=== PATIENT | female | born 1990 | race African-American/Black ===

== ENCOUNTER 2023-04-04 14:25 | Inpatient (IN) ==
--- NOTE | 2023-04-04 14:52 | DR.SOBA ---
HPI Time Seen Time Seen by Provider: 04/04/23 14:51 Primary Care Physician Primary Care Physician: Cash Mchugh (CATEGORY PLANNER) Complaints Chief Complaint Doctors Comments: 32-year-old female presents for evaluation. Has been having recurrent pulmonary issues of the past several weeks. Recently diagnosed with return of asthma. Finished steroids last week, is also on Singulair. Currently on cefdinir for sinus infection. Having worsening br eathing today, pulse ox in the low 90s at triage, is running a fever. Patient reportedly with recurrent pneumonias in the recent past as well. Having persistent cough, trouble sleeping at night. Cough not very productive. With some sinus congestion. No bowel or bladder issues. Chief Complaint:: Pt having "pulmonary problems", taking steroids currently, having sinus congestion, coughing "all night long", dizziness from coughing, short of breath, chest hurting from coughing so much, headache. Pt also c/o back hurting Self Treatment fo Chief Complaint: prednisone, sinus inf treated with cefdinir, inhalers, dimatapp at home recently completed singulair COVID-19 Coronavirus risk:travel/contact w/high risk person: Yes Has patient experienced Coronavirus symptoms: Yes Coronavirus symptoms experienced: Fever, Coughing and Shortness of Breath Reviewed Nurses Notes Reviewed: Yes Source History Provided: Patient Mode of Arrival Mode of Arrival: Wheelchair Timing Onset of Chief Complaint: 04/04/23 PMH PMH Past Medical History: Yes Past Medical History: Asthma and GERD Past Surgical History: Yes Surgical History: SNAG GRINDER Surgery Family History History of Family Medical Conditions: Yes Family Medical History: Cancer and Hypertension Social History Does patient currently use any type of tobacco product: No Have you used tobacco products in the last 12 months: No Type of Tobacco Use: None Does any household member use tobacco: No Alcohol Use: Rarely Do you use any recreational Drugs:: No Lives With: Spouse and Family Lives Where: Home Travel Risk Coronavirus risk:travel/contact w/high risk person: Yes Has patient experienced Coronavirus symptoms: Yes Coronavirus symptoms experienced: Fever, Coughing and Shortness of Breath Infectious screening In the last 2 months have you had wt loss of >10#?: NO Have you had fever, night sweats or hemotysis?: Yes Have you traveled outside the country in the last 6 months?: No Isolation: Droplet ROS Review of Systems Constitutional: Chills and Weakness Eyes: No Symptoms Reported ENTM: Nose Congestion Respiratoy: Moist Cough, Short of Breath and Wheezing Cardiovascular: No Symptoms Reported Gastrointestinal/Abdominal: No Symptoms Reported Genitourinary: No Symptoms Reported Neurological: Weakness Musculoskeletal: Back Pain Integumentary: No Symptoms Reported All Other Systems: Reviewed and Negative PE Vital Signs Vitals: Vital Signs Temperature 100.5 F Pulse Rate 121 Pulse Rate 128 Pulse Rate 127 Pulse Rate 108 Pulse Rate 109 Pulse Rate 109 Pulse Rate 113 Pulse Rate 116 Pulse Rate 113 Pulse Rate 109 Pulse Rate 109 Pulse Rate 114 Pulse Rate 98 Pulse Rate 106 Pulse Rate 115 Pulse Rate 116 Pulse Rate 123 Pulse Rate 124 Pulse Rate 128 Pulse Rate 134 Pulse Rate 132 Pulse Rate 144 Respiratory Rate 18 Respiratory Rate 28 Respiratory Rate 25 Respiratory Rate 24 Respiratory Rate 17 Respiratory Rate 28 Respiratory Rate 21 Respiratory Rate 26 Respiratory Rate 28 Respiratory Rate 25 Respiratory Rate 27 Respiratory Rate 25 Respiratory Rate 26 Respiratory Rate 28 Blood Pressure 115/66 Blood Pressure 132/68 Blood Pressure 123/67 Blood Pressure 130/79 Blood Pressure 135/72 Blood Pressure 134/72 Blood Pressure 132/76 Blood Pressure 125/77 Blood Pressure 132/87 O2 Sat by Pulse Oximetry 94 O2 Sat by Pulse Oximetry 92 O2 Sat by Pulse Oximetry 91 O2 Sat by Pulse Oximetry 97 O2 Sat by Pulse Oximetry 92 O2 Sat by Pulse Oximetry 92 O2 Sat by Pulse Oximetry 92 O2 Sat by Pulse Oximetry 92 O2 Sat by Pulse Oximetry 92 O2 Sat by Pulse Oximetry 96 O2 Sat by Pulse Oximetry 96 O2 Sat by Pulse Oximetry 97 O2 Sat by Pulse Oximetry 98 O2 Sat by Pulse Oximetry 97 O2 Sat by Pulse Oximetry 96 O2 Sat by Pulse Oximetry 98 O2 Sat by Pulse Oximetry 95 O2 Sat by Pulse Oximetry 95 O2 Sat by Pulse Oximetry 94 O2 Sat by Pulse Oximetry 92 O2 Sat by Pulse Oximetry 91 O2 Sat by Pulse Oximetry 92 General General Appearance: Alert and In Distress (At triage, low pulse ox. Doing better on O2) Eyes Eye exam: PERRL and EOMI ENT ENT Exam: Normal Oropharynx, Mucous Membranes Moist and TM's Normal Bilaterally Neck Neck Exam: Normal Inspection; negative Tenderness Respiratory Respiratory Exam: Other (Bilateral rhonchi, expiratory wheezing. Not in respiratory distress while on O2. ) Cardiovascular Cardiovascular Exam: Regular Rate, Normal Rhythm and Normal Heart Sounds Abdominal Exam Abdominal Exam: Soft; negative Tenderness Extremities Extremities Exam: Normal Inspection; negative Edema Back Back Exam: Normal Inspection Neurologic Neurological Exam: Alert, Oriented X3 and CN II-XII Intact; negative Motor Sensory Deficit Skin Skin Exam: Warm and Dry COURSE Treatment Treatment: 32-year-old female with several weeks of recurrent pneumonia and asthma exacerbations. Work-up initiated. Patient put on nasal cannula. Given IV fluids, IV Decadron, and a DuoNeb breathing treatment. CXR - unremarkable. 1823 -labs acceptable, COVID Chemult panel negative. Patient clinically with exacerbation of asthma. 1829 -patient feeling a bit better. Pulse ox at rest on room air 92-93 %. We will give an additional DuoNeb treatment now, will give oral hydrocodone for cough/pain. Patient may require overnight admission, f urther treatment. 0 - + still with expiratory wheezing after 2nd duoneb, pulse ox 93% on RA, will continue O2 and admit for observation. Pt interested in establishing with Dr Alexander, will admit to Dr Parnell (covering [facility]). ROR Labs Reviewed Laboratory Results Reviewed?: Yes 04/04/23 15:38 04/04/23 15:38 Laboratory: WBC 10.8 X10^3/uL (3.6-10.0) H 04/04/23 15:38 RBC 4.79 X10^6/uL (3.5-5.4) 04/04/23 15:38 Hgb 15.1 g/dL (12.0-16.0) 04/04/23 15:38 Hct 44.9 % (36.0-47.0) 04/04/23 15:38 MCV 93.9 fL (80.0-100.0) 04/04/23 15:38 MCH 31.5 pg (27.0-34.0) 04/04/23 15:38 MCHC 33.5 g/dL (33.0-35.0) 04/04/23 15:38 RDW 14.4 % (11.6-16.5) 04/04/23 15:38 Plt Count 409 X10^3/uL (150.0-450.0) 04/04/23 15:38 MPV 6.8 fL (7.4-11.0) L 04/04/23 15:38 Neut % (Auto) 80.9 % (42.0-75.0) H 04/04/23 15:38 Lymph % (Auto) 13.1 % (21.0-51.0) L 04/04/23 15:38 [place] % (Auto) 5.4 % (0.0-13.0) 04/04/23 15:38 Eos % (Auto) 0.2 % (0.9-2.9) L 04/04/23 15:38 Baso % (Auto) 0.4 % (0.2-1.0) 04/04/23 15:38 Neut # (Auto) 8.8 x10^3/uL (2.2-4.8) H 04/04/23 15:38 Lymph # (Auto) 1.4 X10^3/uL (1.3-2.9) 04/04/23 15:38 Hamb[place] # (Auto) 0.6 x10^3/uL (0.3-0.8) 04/04/23 15:38 Eos # (Auto) 0.0 x10^3/uL (0.0-0.2) 04/04/23 15:38 Baso # (Auto) 0.0 X10^3/uL (0.0-0.1) 04/04/23 15:38 Absolute Nucleated RBC 0.1 /100WBC 04/04/23 15:38 Sodium 136 mmol/L (136-145) 04/04/23 15:38 Corrected Sodium 137 mmol/L (136-145) 04/04/23 15:38 Potassium 4.3 mmol/L (3.5-5.1) 04/04/23 15:38 Chloride 103 mmol/L (98-107) 04/04/23 15:38 Carbon Dioxide 25.8 mmol/L (21-32) 04/04/23 15:38 BUN 11 mg/dL (7-18) 04/04/23 15:38 Creatinine 1.01 mg/dL (0.55-1.02) 04/04/23 15:38 Est GFR (MDRD) Af Amer > 60 (>60) 04/04/23 15:38 Est GFR (MDRD) Non-Af > 60 (>60) 04/04/23 15:38 Glucose 133 mg/dL (65-99) H 04/04/23 15:38 Calcium 8.7 mg/dL (8.5-10.1) 04/04/23 15:38 Corrected Calcium TNP 04/04/23 15:38 Total Bilirubin 0.40 mg/dL (0.2-1.0) 04/04/23 15:38 AST 37 Units/L (15-37) 04/04/23 15:38 ALT 41 Units/L (12-78) 04/04/23 15:38 Alkaline Phosphatase 118 Units/L (46-116) H 04/04/23 15:38 Total Protein 7.5 g/dL (6.4-8.2) 04/04/23 15:38 Albumin 3.5 g/dL (3.4-5.0) 04/04/23 15:38 Globulin 4.0 g/dL (2.5-4.5) 04/04/23 15:38 Albumin/Globulin Ratio 0.9 Ratio (1.1-2.1) L 04/04/23 15:38 TSH 3rd Generation 0.271 uIU/mL (0.358-3.74) L 04/04/23 15:38 SARS-CoV-2 (PCR) Negative (NEGATIVE) 04/04/23 14:55 Influenza Type A (PCR) Negative (NEGATIVE) 04/04/23 14:55 Influenza Type B (PCR) Negative (NEGATIVE) 04/04/23 14:55 RSV (PCR) Negative (NEGATIVE) 04/04/23 14:55 Labs acceptable. XRAY XRAY Interpreted by: Both X-ray Results: CXR -no acute abnormalities. Opioid Opioid Risk Tool Age (Paul box if 16-45): Yes History of Preadolescent Sexual Abuse: No Total: 1 Total Score Risk Category: Low Risk Copyright: Matos predicting aberrant behaviors Discharge Plan Diagnosis Discharge Problem: Exacerbation of asthma Discharge Plan Patient Disposition: 09 ADMITTED INPATIENT Condition: Stable Prescriptions: No Action nystatin 100,000 unit/mL suspension 5 ml PO TID PRN albuterol sulfate 90 mcg/actuation HFA aerosol inhaler 2 puff INHALATION Q4H PRN cefdinir 300 mg capsule 300 mg PO BID budesonide-formoterol 80-4.5 mcg/actuation HFA aerosol inhaler 2 puff INHALATION BID Health Concerns: Post Hospitalization: new medications and changes needed to prevent readmission or further decline. Pt educated and given instructions on all concerns. Plan of Treatment: Continue with present treatment and follow up plan. Pt is to keep follow up appointment as instructed and take medications as ordered. Orders to Discharge Patient Discharge Orders: Transfer (Routine); Ordered 04/04/23 Ordered By: Fredy Boone Follow ups/Referrals Follow ups/Referrals: Tarsha Lay [Primary Care Provider] - 3 days
--- NOTE | 2023-04-04 15:10 | RAD ---
EXAM:CHEST, 1 VIEWHISTORY:SOUGH, DYSPNEA;COMPARISON:No relevant prior studies were available at the time of interpretation.TECHNIQUE:CHEST, 1 VIEWFINDINGS:Lines and tubes: NoneMediastinum:The cardiomediastinal silhouette is within normal limits for size and contour.Pulmonary vasculature:No pulmonary vascular congestionLung sidhu: No suspicious airspace opacities.Pleura:No effusion or pneumothorax.Bones and soft tissues:No acute osseous or soft tissue abnormality.IMPRESSION:1. No acute cardiopulmonary abnormalityTHIS IS AN ELECTRONICALLY VERIFIED FINAL [id number]/04/2023 3:07 PM - Electronically signed by Lester Sorto MD
[2023-04-04] MEDS ORDERED: DUONEB 0.5 MG/3 MG (3 mL) NEB ONE ×3 (15:16→18:29)
[2023-04-04] MEDS ORDERED: NS 1,000 ML IV 1,000 ML IV ONE (15:16)
[2023-04-04] MEDS ORDERED: DECADRON INJ IVP ONE (15:16)
[2023-04-04] MEDS ORDERED: TORADOL 30 MG VIAL IVP ONE (15:17)
[2023-04-04] MEDS ORDERED: DECADRON INJ ONE (15:27)
[2023-04-04] MEDS ORDERED: TORADOL 30 MG VIAL ONE (15:27)
[2023-04-04] MEDS ORDERED: NS 1,000 ML IV 1,000 ML ONE (15:28)
[2023-04-04 15:57] LABS: BASOPHILS % (AUTO) 0.4 % (0.2-1.0); EOSINOPHILS % (AUTO) 0.2 % (0.9-2.9); HEMATOCRIT 44.9 % (36.0-47.0); HEMOGLOBIN 15.1 g/dL (12.0-16.0); LYMPHOCYTES # (AUTO) 1.4 X10^3/uL (1.3-2.9); LYMPHOCYTES % (AUTO) 13.1 % (21.0-51.0); MEAN CORPUSCULAR HEMOGLOBIN 31.5 pg (27.0-34.0); MEAN CORPUSCULAR HGB CONC 33.5 g/dL (33.0-35.0); MEAN CORPUSCULAR VOLUME 93.9 fL (80.0-100.0); MEAN PLATELET VOLUME 6.8 fL (7.4-11.0); MONOCYTES # (AUTO) 0.6 x10^3/uL (0.3-0.8); MONOCYTES % (AUTO) 5.4 % (0.0-13.0); NEUTROPHILS # (AUTO) 8.8 x10^3/uL (2.2-4.8); NEUTROPHILS % (AUTO) 80.9 % (42.0-75.0); PLATELET COUNT 409 X10^3/uL (150.0-450.0); RED BLOOD COUNT 4.79 X10^6/uL (3.5-5.4); RED CELL DISTRIBUTION WIDTH 14.4 % (11.6-16.5); WHITE BLOOD COUNT 10.8 X10^3/uL (3.6-10.0)
[2023-04-04 16:15] LABS: ALANINE AMINOTRANSFERASE 41 Units/L (12-78); ALBUMIN 3.5 g/dL (3.4-5.0); ALKALINE PHOSPHATASE 118 Units/L (46-116); ASPARTATE AMINO TRANSFERASE 37 Units/L (15-37); BLOOD UREA NITROGEN 11 mg/dL (7-18); CALCIUM 8.7 mg/dL (8.5-10.1); CARBON DIOXIDE 25.8 mmol/L (21-32); CREATININE 1.01 mg/dL (0.55-1.02); GLUCOSE 133 mg/dL (65-99); TOTAL PROTEIN 7.5 g/dL (6.4-8.2); TSH (3RD GENERATION) 0.271 uIU/mL (0.358-3.74); eGFR NON BLACK RACES > 60 (>60)
[2023-04-04 16:25] LABS: CHLORIDE 103 mmol/L (98-107); COR NA(FOR HYPERGLY) 137 mmol/L (136-145); POTASSIUM 4.3 mmol/L (3.5-5.1); SODIUM 136 mmol/L (136-145)
[2023-04-04] MEDS ORDERED: NORCO 7.5/325 MG TAB ONE (18:34)
[2023-04-04] MEDS: NORCO 7.5/325 MG TAB PO ONE (18:36)
[2023-04-04] MEDS ORDERED: CONSULT PHARMACY - POTASSIUM & MAGNESIUM XX SCH (20:53)
[2023-04-04 21:43] VITALS: BMI 39.8
[2023-04-04] MEDS ORDERED: DUONEB 0.5 MG/3 MG (3 mL) NEB SCH (22:00)
[2023-04-04] MEDS: SOLU-Medrol 40 MG VIAL IVP SCH (22:08)
[2023-04-04] MEDS ORDERED: PROVENTIL NEB TX 0.083% 2.5MG/ 3ML ONE (23:33)
[2023-04-05] MEDS: PROVENTIL NEB TX 0.083% 2.5MG/ 3ML NEB SCH ×6 (00:01→21:10)
[2023-04-05] MEDS: ROBITUSSIN DM PO PRN ×3 (02:43→21:15)
[2023-04-05] MEDS ORDERED: TYLENOL 325 MG TAB PO ONE (03:04)
[2023-04-05] MEDS: TYLENOL 325 MG TAB PO PRN ×3 (03:07→21:58)
[2023-04-05] MEDS: SOLU-Medrol 40 MG VIAL IVP SCH ×3 (05:21→21:16)
[2023-04-05] MEDS: TUSSIONEX PENNKINETIC SUSP PO PRN ×2 (05:21→21:57)
[2023-04-05 05:36] LABS: BASOPHILS % (AUTO) 0.2 % (0.2-1.0); HEMATOCRIT 41.6 % (36.0-47.0); HEMOGLOBIN 13.7 g/dL (12.0-16.0); LYMPHOCYTES # (AUTO) 1.6 X10^3/uL (1.3-2.9); LYMPHOCYTES % (AUTO) 9.7 % (21.0-51.0); MEAN CORPUSCULAR HEMOGLOBIN 31.2 pg (27.0-34.0); MEAN CORPUSCULAR VOLUME 94.5 fL (80.0-100.0); MEAN PLATELET VOLUME 7.1 fL (7.4-11.0); MONOCYTES % (AUTO) 6.3 % (0.0-13.0); NEUTROPHILS # (AUTO) 13.5 x10^3/uL (2.2-4.8); NEUTROPHILS % (AUTO) 83.8 % (42.0-75.0); PLATELET COUNT 370 X10^3/uL (150.0-450.0); RED CELL DISTRIBUTION WIDTH 14.3 % (11.6-16.5); WHITE BLOOD COUNT 16.1 X10^3/uL (3.6-10.0)
[2023-04-05 05:37] LABS: ALANINE AMINOTRANSFERASE 33 Units/L (12-78); ALKALINE PHOSPHATASE 138 Units/L (46-116); ASPARTATE AMINO TRANSFERASE 22 Units/L (15-37); BLOOD UREA NITROGEN 13 mg/dL (7-18); CALCIUM 8.1 mg/dL (8.5-10.1); CARBON DIOXIDE 24.2 mmol/L (21-32); CHLORIDE 105 mmol/L (98-107); COR CA(FOR HYPOALB) 8.9 mg/dL (8.5-10.1); COR NA(FOR HYPERGLY) 138 mmol/L (136-145); CREATININE 0.89 mg/dL (0.55-1.02); GLUCOSE 149 mg/dL (65-99); SODIUM 137 mmol/L (136-145); TOTAL PROTEIN 6.7 g/dL (6.4-8.2); eGFR NON BLACK RACES > 60 (>60)
[2023-04-05] MEDS: PULMICORT NEB TX 0.5 MG NEB SCH ×2 (09:06→21:10)
[2023-04-05] MEDS: NYSTATIN SUSP MT SCH ×4 (11:15→21:15)
--- NOTE | 2023-04-05 11:59 | DR.H&P ---
H&P - History & Physical for Day of: H&P Date: 04/04/23 - Chief Complaint Chief Complaint: COUGH, SOB - History of Present Illness History of Present Illness: IS A 32 YEAR OLD BLACK FEMALE. SHE IS A PATIENT OF [facility]. SHE HAS A PMH OF ASTHMA AND GERD. SHE PRESENTED TO THE ER WITH COMPLAINTS OF PERSISTENT COUGH, SHORTNESS OF BREATH, HEADACHE, AND CHEST DISCOMFORT. PATIENT REPORTS THAT SHE HAS HAD RECURRENT PULMONARY ISSUES FOR THE PAST SEVERAL WEEKS. SHE WAS RECENTLY DIAGNOSED WITH ASTHMA. SHE REPORTS THAT SHE WAS ALSO TOLD LAST WEEK THAT SHE HAD A SINUS INFECTION AND WAS PRESCRIBED CEFDINIR, WHICH SHE IS STILL TAKING. SHE REPORTS THAT SHORTNESS OF BREATH HAS WORSENED OVER THE PAST DAY OR TWO. SHE REPORTS THAT HER OXYGEN SATURATION AT HOME HAS DROPPED TO 90% AND THAT SHE HAS RAN A FEVER. SHE REPORTS THAT COUGH IS NOT PRODUCTIVE AND THAT SHE HAS HAD SOME SINUS CONGESTION. SHE DENIES BOWEL OR BLADDER ISSUES. IT APPEARS THAT PATIENT HAS TAKEN CEFDINIR 300MG BID, ALBUTEROL INHALER, BUDESONIDE INHALER, FLUCONAZOLE 100MG Q3DAYS, NYSTATIN SWISH AND SWALLOW SINCE 03/24/23. ON ARRIVAL TO THE HOSPTIAL, HER VITALS WERE: 100.5-144-28-92%ROOM AIR-132/87. LABS WERE OBTAINED. WBC 10.8, RBC 4.79, HGB 15.1, HCT 44.9, PLT COUNT 409, SODIUM 136, POTASSIUM 4.3, CHLORIDE 103, CARBON DIOXIDE 25.8, BUN 11, CREATININE 1.01, GLUCOSE 133, CALCIUM 8.7, TOTAL BILI 0.40, AST 37, ALT 41, ALK PHOS 118, TOTAL PROTEIN 7.5, ALBUMIN 3.5. COVID, INFLUENZA, AND RSV NEGATIVE. A CHEST XRAY WAS OBTAINED AND REVEALED: 1. No acute cardiopulmonary abnormality. IN THE ER, SHE WAS PLACED ON OXYGEN VIA NASAL CANNULA AT 2 LPM. SATURATIONS INCREASED TO THE UPPER 90s. IN THE ER, SHE WAS GIVEN DECADRON 8MG IV X 1, DUONEB X 2, NORMAL SALINE BOLUS, TORADOL 30MG IV X 1, NORCO 7.5/325MG X 1. SHE WAS ADMITTED TO THE HOSPITAL FOR FURTHER EVALUATION AND TREATMENT OF ASTHMA EXACERBATION, ACUTE BRONCHITIS. ON ADMISSION, SHE WAS STARTED ON ROCEPHIN 1G IV DAILY, SOLU-MEDROL 40MG IV Q8H, ALBUTEROL NEBS Q4H, PULMICORT NEBS BID, TUSSIONEX 5ML Q12H PRN, ROBITUSSIN DM 10ML Q4H PRN, NYSTATIN SUSP 5ML QID, AND FLUCONAZOLE 100MG DAILY. OTHERWISE, WE PLAN TO FOLLOW UP WITH AM LABS AND CHEST XRAY AND CONTINUE TO MONITOR. TIME SPENT ON CLINICAL ASSESSMENT, REVIEWING LABS AND IMAGING, DECISION MAKING, AND DOCUMENTATION GREATER THAN 75 MINUTES. 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 - Family History Family Medical History: Cancer, Hypertension - Social History Does patient currently use any type of tobacco product: No Have you used tobacco products in the last 12 months: No Type of Tobacco Use: None Does any household member use tobacco: No Alcohol Use: Rarely Drug Use: None - Review of Systems Constitutional: Fever Eyes: No Symptoms Reported ENT: No Symptoms Reported Respiratory: Cough, Shortness of Breath, Wheezing Cardiovascular: Chest Pain Gastrointestinal: No Symptoms Reported Genitourinary: No Symptoms Reported Musculoskeletal: No Symptoms Reported Skin: No Symptoms Reported Neurological: No Symptoms Reported - Physical Exam Vital Signs: Vital Signs Temperature 98.8 F Temperature 98.0 F Pulse Rate [Left] 95 Pulse Rate [Left] 109 Pulse Rate 111 Respiratory Rate 18 Respiratory Rate 19 Respiratory Rate 20 Blood Pressure [Left Arm] 115/62 Blood Pressure [Left Arm] 119/61 O2 Sat by Pulse Oximetry 96 O2 Sat by Pulse Oximetry 95 O2 Sat by Pulse Oximetry 95 Oriented: Normal Eyes: Normal Ear: Normal Nose: Normal Cardiovascular: Tachycardia : Normal Auscultation: Bowel Sounds: Normal Palpation: Normal Tenderness: Normal Skin: Normal Musculoskeletal: Normal Psychiatric: Normal Mood Description: Calm Affect: Normal Speech Pattern: Clear - Assessment/Plan (1) Exacerbation of asthma Qualifiers: Asthma severity: moderate Status: Acute Plan: ADMIT, SUPPLEMENTAL OXYGEN, ROCEPHIN 1G IV DAILY, SOLU-MEDROL 40MG IV Q8H, ALBUTEROL NEBS Q4H, PULMICORT NEBS BID, TUSSIONEX 5ML Q12H PRN, ROBITUSSIN DM 10ML Q4H PRN, NYSTATIN SUSP 5ML QID, AND FLUCONAZOLE 100MG DAILY. (2) Acute bronchitis Qualifiers: Bronchitis organism: unspecified organism Qualified Code(s): J20.9 - Acute bronchitis, unspecified Status: Acute (3) Fever Qualifiers: Fever type: unspecified Qualified Code(s): R50.9 - Fever, unspecified Status: Acute - Allergies Allergies/Adverse Reactions: Allergies Allergy/AdvReac Type Severity Reaction Status Date / Time corn AdvReac Mild Verified 04/04/23 14:28 shrimp AdvReac Mild Verified 04/04/23 14:28 tomato AdvReac Mild Verified 04/04/23 14:28 - Medications Home Medications: Home Medications Medication Instructions Recorded Confirmed albuterol sulfate 90 mcg/actuation 2 puff inhalation Q4H PRN 04/04/23 04/04/23 aerosol inhaler budesonide-formoterol HFA 80 2 puff inhalation BID 04/04/23 04/04/23 mcg-4.5 mcg/actuation aerosol inhaler cefdinir 300 mg capsule 300 mg PO BID 04/04/23 04/04/23 nystatin 100,000 unit/mL oral 5 ml PO TID PRN 04/04/23 04/04/23 suspension
[2023-04-05] MEDS ORDERED: NS 250 ML IV 250 ML IV ONE (13:10)
[2023-04-05] MEDS: DIFLUCAN PO SCH (13:26)
[2023-04-05] MEDS: ROCEPHIN VIAL 1 GRAM 1 G in NS 100 ML IV 100 ML IV SCH (13:27)
[2023-04-06] MEDS: PROVENTIL NEB TX 0.083% 2.5MG/ 3ML NEB SCH ×6 (05:10→20:50)
[2023-04-06 06:25] LABS: BASOPHILS # (AUTO) 0.1 X10^3/uL (0.0-0.1); BASOPHILS % (AUTO) 0.3 % (0.2-1.0); EOSINOPHILS # (AUTO) 0.1 x10^3/uL (0.0-0.2); EOSINOPHILS % (AUTO) 0.3 % (0.9-2.9); HEMATOCRIT 42.9 % (36.0-47.0); HEMOGLOBIN 14.2 g/dL (12.0-16.0); LYMPHOCYTES # (AUTO) 2.5 X10^3/uL (1.3-2.9); LYMPHOCYTES % (AUTO) 11.6 % (21.0-51.0); MEAN CORPUSCULAR HEMOGLOBIN 31.5 pg (27.0-34.0); MEAN CORPUSCULAR HGB CONC 33.1 g/dL (33.0-35.0); MEAN CORPUSCULAR VOLUME 94.9 fL (80.0-100.0); MEAN PLATELET VOLUME 7.5 fL (7.4-11.0); MONOCYTES # (AUTO) 1.9 x10^3/uL (0.3-0.8); MONOCYTES % (AUTO) 8.8 % (0.0-13.0); NEUTROPHILS # (AUTO) 16.8 x10^3/uL (2.2-4.8); PLATELET COUNT 363 X10^3/uL (150.0-450.0); RED BLOOD COUNT 4.52 X10^6/uL (3.5-5.4); RED CELL DISTRIBUTION WIDTH 14.5 % (11.6-16.5); WHITE BLOOD COUNT 21.2 X10^3/uL (3.6-10.0)
--- NOTE | 2023-04-06 06:25 | RAD ---
EXAM:CHEST, 1 VIEWHISTORY:EXACERBATION OF ASTHMA, SOB ;COMPARISON:04/04/2023.TECHNIQUE:AP view of the chestFINDINGS:The cardiac and mediastinal contours are normal in size. No consolidation or segmental lung collapse. Minor thickening of the right minor fissure. No pneumothorax. Soft tissue attenuation from the chest wall limits evaluation.IMPRESSION:Minor thickening of the right minor fissure can be seen with small right pleural effusion.THIS IS AN ELECTRONICALLY VERIFIED FINAL [id number]/06/2023 6:22 AM - Electronically signed by Kai Villa MD
[2023-04-06 06:41] LABS: ALANINE AMINOTRANSFERASE 31 Units/L (12-78); ALBUMIN 3.1 g/dL (3.4-5.0); ALKALINE PHOSPHATASE 130 Units/L (46-116); ASPARTATE AMINO TRANSFERASE 14 Units/L (15-37); BLOOD UREA NITROGEN 14 mg/dL (7-18); CALCIUM 8.1 mg/dL (8.5-10.1); CARBON DIOXIDE 27.3 mmol/L (21-32); CHLORIDE 104 mmol/L (98-107); COR CA(FOR HYPOALB) 8.8 mg/dL (8.5-10.1); COR NA(FOR HYPERGLY) 138 mmol/L (136-145); CREATININE 0.85 mg/dL (0.55-1.02); GLUCOSE 128 mg/dL (65-99); POTASSIUM 4.2 mmol/L (3.5-5.1); SODIUM 137 mmol/L (136-145); TOTAL PROTEIN 6.8 g/dL (6.4-8.2); eGFR NON BLACK RACES > 60 (>60)
[2023-04-06 06:54] LABS: PLATELET MORPHOLOGY COMMENT NORMAL (NORMAL)
[2023-04-06] MEDS: SOLU-Medrol 40 MG VIAL IVP SCH ×3 (06:59→21:39)
[2023-04-06] MEDS: PULMICORT NEB TX 0.5 MG NEB SCH ×2 (09:15→20:50)
[2023-04-06] MEDS: ROBITUSSIN DM PO PRN ×2 (10:30→19:58)
[2023-04-06 10:32] LABS: ABG ALLEN TEST POS; ABG BASE EXCESS 2.6 mmol/L (-2.0-2.0); ABG HCO3 26.2 mmol/L (22-26)
[2023-04-06] MEDS: DIFLUCAN PO SCH (11:41)
[2023-04-06] MEDS: NYSTATIN SUSP MT SCH ×4 (11:41→20:54)
[2023-04-06] MEDS: ROCEPHIN VIAL 1 GRAM 1 G in NS 100 ML IV 100 ML IV SCH (11:42)
[2023-04-06] MEDS ORDERED: OMNIPAQUE 350 mg/mL 100 mL BTL 100 ML ONE (15:51)
[2023-04-06] MEDS: TYLENOL 325 MG TAB PO PRN (19:58)
[2023-04-06] MEDS: SINGULAIR TAB 10 MG PO SCH (20:50)
[2023-04-06] MEDS: TUSSIONEX PENNKINETIC SUSP PO PRN (20:50)
[2023-04-06] MEDS: CLARITIN PO SCH (20:50)
[2023-04-06] MEDS: PROTONIX INJ 40 MG VIAL IVP SCH (20:58)
[2023-04-07] MEDS: PROVENTIL NEB TX 0.083% 2.5MG/ 3ML NEB SCH ×6 (00:42→20:33)
--- NOTE | 2023-04-07 01:00 | CT ---
EXAM:CHEST WITH CONTRASTHISTORY:ASTHMA, SOB;COMPARISON:Chest radiograph from April 06, 2023TECHNIQUE:Axial CT images of the chest were obtained after the administration of 75 mL Omnipaque 350 IV contrast. Images were reformatted into the coronal and sagittal planes for further evaluation.Radiation dose: 340.50 mGy-cm total DLPFINDINGS:No pericardial effusion.Aorta and pulmonary arteries are normal in caliber.No hilar or mediastinal adenopathy.Thyroid appears normal.Central airways are widely patent.Esophagus appears normal.Imaged portion of the upper abdomen is unremarkable.No effusion, focal consolidation or pneumothorax.No focal concerning lung parenchymal lesion identified.IMPRESSION:No acute intrathoracic abnormality.THIS IS AN ELECTRONICALLY VERIFIED FINAL [id number]/07/2023 12:57 AM - Electronically signed by James Akbar MD
[2023-04-07] MEDS: SOLU-Medrol 40 MG VIAL IVP SCH ×3 (05:06→21:08)
[2023-04-07 06:15] LABS: BASOPHILS # (AUTO) 0.1 X10^3/uL (0.0-0.1); BASOPHILS % (AUTO) 0.3 % (0.2-1.0); EOSINOPHILS % (AUTO) 0.1 % (0.9-2.9); HEMATOCRIT 42.5 % (36.0-47.0); HEMOGLOBIN 14.1 g/dL (12.0-16.0); LYMPHOCYTES # (AUTO) 1.8 X10^3/uL (1.3-2.9); MEAN CORPUSCULAR HEMOGLOBIN 31.7 pg (27.0-34.0); MEAN CORPUSCULAR HGB CONC 33.2 g/dL (33.0-35.0); MEAN CORPUSCULAR VOLUME 95.3 fL (80.0-100.0); MONOCYTES # (AUTO) 1.5 x10^3/uL (0.3-0.8); MONOCYTES % (AUTO) 8.3 % (0.0-13.0); NEUTROPHILS # (AUTO) 14.7 x10^3/uL (2.2-4.8); NEUTROPHILS % (AUTO) 81.3 % (42.0-75.0); PLATELET COUNT 337 X10^3/uL (150.0-450.0); RED BLOOD COUNT 4.46 X10^6/uL (3.5-5.4); RED CELL DISTRIBUTION WIDTH 14.3 % (11.6-16.5)
[2023-04-07 06:28] LABS: ALANINE AMINOTRANSFERASE 26 Units/L (12-78); ALKALINE PHOSPHATASE 115 Units/L (46-116); ASPARTATE AMINO TRANSFERASE 10 Units/L (15-37); BLOOD UREA NITROGEN 18 mg/dL (7-18); CALCIUM 7.9 mg/dL (8.5-10.1); CARBON DIOXIDE 27.1 mmol/L (21-32); CHLORIDE 105 mmol/L (98-107); COR CA(FOR HYPOALB) 8.7 mg/dL (8.5-10.1); COR NA(FOR HYPERGLY) 141 mmol/L (136-145); CREATININE 0.88 mg/dL (0.55-1.02); GLUCOSE 132 mg/dL (65-99); POTASSIUM 4.2 mmol/L (3.5-5.1); SODIUM 140 mmol/L (136-145); TOTAL PROTEIN 6.7 g/dL (6.4-8.2); eGFR NON BLACK RACES > 60 (>60)
--- NOTE | 2023-04-07 06:30 | RAD ---
EXAM:CHEST, 1 VIEWHISTORY:SOB ;COMPARISON:04/06/2023.TECHNIQUE:AP view of the chestFINDINGS:The cardiac and mediastinal contours are within normal limits. The lungs are clear without focal consolidation or segmental collapse. There is minor thickening of the right minor fissure. No pneumothorax. Soft tissue attenuation from the chest wall limits evaluation.IMPRESSION:No significant change compared to prior radiograph.THIS IS AN ELECTRONICALLY VERIFIED FINAL [id number]/07/2023 6:26 AM - Electronically signed by Kai Villa MD
[2023-04-07] MEDS: PULMICORT NEB TX 0.5 MG NEB SCH ×2 (09:04→20:33)
[2023-04-07] MEDS: CLARITIN PO SCH (10:03)
[2023-04-07] MEDS: NYSTATIN SUSP MT SCH ×4 (10:04→20:29)
[2023-04-07] MEDS: ROCEPHIN VIAL 1 GRAM 1 G in NS 100 ML IV 100 ML IV SCH (10:04)
[2023-04-07] MEDS: FLONASE NASAL SPRAY ENOSTRIL SCH (10:04)
[2023-04-07] MEDS: PROTONIX INJ 40 MG VIAL IVP SCH ×2 (10:04→20:29)
[2023-04-07] MEDS: DIFLUCAN PO SCH (10:04)
[2023-04-07] MEDS: ROBITUSSIN DM PO PRN ×2 (10:05→18:00)
--- NOTE | 2023-04-07 13:56 | EKG ---
Test Reason : tachycardia Blood Pressure : */* mmHG Vent. Rate : 84 BPM Atrial Rate : 84 BPM P-R Int : 122 ms QRS Dur : 74 ms QT Int : 334 ms P-R-T Axes : 65 -18 32 degrees QTc Int : 394 ms Normal sinus rhythm with sinus arrhythmia Septal infarct , age undetermined Abnormal ECG No previous ECGs available Confirmed by Jarrell Byers ([id number]) on 04/10/2023 7:51:04 AM Referred By: Confirmed By: Jarrell Byers
--- NOTE | 2023-04-07 14:27 | PCM.PROG ---
Progress Note Progress Note for Day of Date of Exam: 04/07/23 Subjective Subjective: The patient is a 32-year-old black female who was admitted with asthma exacerbation and bronchitis. Since admission, she has been on IV antibiotics with Rocephin. She has been on corticosteroids with SoluMedrol every 8 hours and DuoNebs along with supplemental oxygen. We did obtain an ABG on room air which revealed hypoxia PO 2 65. Pt has been tachycardic, worse on exertion. Pt states her cough is slightly improved but SOB continues. Plan to obtain EKG. The patient does have complaints of a chronic cough for over a year which started sometime after she had COVID and she has been under the care of Dr. Trejo, Carpenter Assistant Installer, as well as an welding machine operator electron beam to try and get better control of her asthma. P was started on Fluticasone nasal spray, already on Singulair, 10 mg and Claritin, 10 mg. We added Pantoprazole, 40 mg IV twice a day and we discussed with her Ct of chest results. Pt's D-Dimer was in normal range. An AIT swab has been obtained with results pending. She is afebrile this morning. Her blood pressure was 126/56. Pt has thyromegaly, tsh free t3 and t4 were obtained. Plan to obtain Thyroid US.The patient states that she has no nausea and vomiting but just cannot control her coughing. Past Medical Family Social History Allergies: Allergies corn Adverse Reaction (Mild, Verified 04/04/23 14:28) shrimp Adverse Reaction (Mild, Verified 04/04/23 14:28) tomato Adverse Reaction (Mild, Verified 04/04/23 14:28) Vital Signs and I&O's Vital Signs: Vital Signs Temperature 98.7 F Temperature 98.6 F Pulse Rate [Left] 110 Pulse Rate [Left] 82 Pulse Rate 83 Respiratory Rate 20 Respiratory Rate 18 Blood Pressure [Left Arm] 126/56 Blood Pressure [Left Arm] 135/76 O2 Sat by Pulse Oximetry 92 O2 Sat by Pulse Oximetry 97 O2 Sat by Pulse Oximetry 95 Intake and Output: Intake & Output 04/05/23 04/06/23 04/07/23 04/08/23 11:59 11:59 11:59 11:59 Intake Total 730 / 730 1330 / 1330 1400 / 1400 Balance 730 / 730 1330 / 1330 1400 / 1400 Physical Exam Oriented: Normal Eyes: Normal Ear: Normal Nose: Normal Throat: Exudate and Other (neck exam, thyromegaly) Cardiovascular: Tachycardia : Normal Auscultation: Bowel Sounds: Normal Tenderness: Normal Skin: Normal Musculoskeletal: Normal Psychiatric: Normal Mood Description: Calm and Anxious Affect: Normal Speech Pattern: Clear and Appropriate Laboratory and Diagnostics 04/07/23 05:21 04/07/23 05:21 Labs: 04/05/23 16:50 Sputum - Expectorated Sputum Sputum Culture - Final 04/05/23 16:50 Sputum - Expectorated Sputum - Final Laboratory WBC 18.0 X10^3/uL (3.6-10.0) H 04/07/23 05:21 RBC 4.46 X10^6/uL (3.5-5.4) 04/07/23 05:21 Hgb 14.1 g/dL (12.0-16.0) 04/07/23 05:21 Hct 42.5 % (36.0-47.0) 04/07/23 05:21 MCV 95.3 fL (80.0-100.0) 04/07/23 05:21 MCH 31.7 pg (27.0-34.0) 04/07/23 05:21 MCHC 33.2 g/dL (33.0-35.0) 04/07/23 05:21 RDW 14.3 % (11.6-16.5) 04/07/23 05:21 Plt Count 337 X10^3/uL (150.0-450.0) 04/07/23 05:21 Plt Count Comment Adequate (ADEQUATE) 04/06/23 05:51 MPV 8.0 fL (7.4-11.0) 04/07/23 05:21 Neut % (Auto) 81.3 % (42.0-75.0) H 04/07/23 05:21 Lymph % (Auto) 10.0 % (21.0-51.0) L 04/07/23 05:21 [place] % (Auto) 8.3 % (0.0-13.0) 04/07/23 05:21 Eos % (Auto) 0.1 % (0.9-2.9) L 04/07/23 05:21 Baso % (Auto) 0.3 % (0.2-1.0) 04/07/23 05:21 Neut # (Auto) 14.7 x10^3/uL (2.2-4.8) H 04/07/23 05:21 Lymph # (Auto) 1.8 X10^3/uL (1.3-2.9) 04/07/23 05:21 [place] # (Auto) 1.5 x10^3/uL (0.3-0.8) H 04/07/23 05:21 Eos # (Auto) 0.0 x10^3/uL (0.0-0.2) 04/07/23 05:21 Baso # (Auto) 0.1 X10^3/uL (0.0-0.1) 04/07/23 05:21 Absolute Nucleated RBC 0.0 /100WBC 04/07/23 05:21 Total Counted 100 04/06/23 05:51 Neutrophils % (Manual) 80 % (39-76) H 04/06/23 05:51 Lymphocytes % (Manual) 13 % (13-43) 04/06/23 05:51 Monocytes % (Manual) 7 % (4-9) 04/06/23 05:51 Plt Morphology Comment Normal (NORMAL) 04/06/23 05:51 RBC Morphology Normal (NORMAL) 04/06/23 05:51 D-Dimer 0.31 ug/ml (0.0-0.57) 04/07/23 05:21 Sample Site Lr 04/06/23 10:30 ABG pH 7.470 (7.35-7.45) H 04/06/23 10:30 ABG pCO2 36.0 mmHg (35.0-45.0) 04/06/23 10:30 ABG pO2 61.0 mmHg (80.0-100.0) L 04/06/23 10:30 ABG HCO3 26.2 mmol/L (22-26) H 04/06/23 10:30 ABG O2 Saturation 93.0 % (90-100) 04/06/23 10:30 ABG Base Excess 2.6 mmol/L (-2.0-2.0) H 04/06/23 10:30 Kanu Test Pos 04/06/23 10:30 A-a Gradient 44.0 mmHg 04/06/23 10:30 FiO2 21.0 04/06/23 10:30 Blood Gas Comments Pt puma well cdn 04/06/23 10:30 Sodium 140 mmol/L (136-145) 04/07/23 05:21 Corrected Sodium 141 mmol/L (136-145) 04/07/23 05:21 Potassium 4.2 mmol/L (3.5-5.1) 04/07/23 05:21 Chloride 105 mmol/L (98-107) 04/07/23 05:21 Carbon Dioxide 27.1 mmol/L (21-32) 04/07/23 05:21 BUN 18 mg/dL (7-18) 04/07/23 05:21 Creatinine 0.88 mg/dL (0.55-1.02) 04/07/23 05:21 Est GFR (MDRD) Af Amer > 60 (>60) 04/07/23 05:21 Est GFR (MDRD) Non-Af > 60 (>60) 04/07/23 05:21 Glucose 132 mg/dL (65-99) H 04/07/23 05:21 POC Glucose (mg/dL) 125 mg/dL (65-99) H 04/06/23 17:23 Calcium 7.9 mg/dL (8.5-10.1) L 04/07/23 05:21 Corrected Calcium 8.7 mg/dL (8.5-10.1) 04/07/23 05:21 Total Bilirubin 0.30 mg/dL (0.2-1.0) 04/07/23 05:21 AST 10 Units/L (15-37) L 04/07/23 05:21 ALT 26 Units/L (12-78) 04/07/23 05:21 Alkaline Phosphatase 115 Units/L (46-116) 04/07/23 05:21 Total Protein 6.7 g/dL (6.4-8.2) 04/07/23 05:21 Albumin 3.0 g/dL (3.4-5.0) L 04/07/23 05:21 Globulin 3.7 g/dL (2.5-4.5) 04/07/23 05:21 Albumin/Globulin Ratio 0.8 Ratio (1.1-2.1) L 04/07/23 05:21 Free T4 1.06 ng/dL (0.76-1.46) 04/06/23 05:51 TSH 3rd Generation 0.271 uIU/mL (0.358-3.74) L 04/04/23 15:38 SARS-CoV-2 (PCR) Negative (NEGATIVE) 04/04/23 14:55 Influenza Type A (PCR) Negative (NEGATIVE) 04/04/23 14:55 Influenza Type B (PCR) Negative (NEGATIVE) 04/04/23 14:55 RSV (PCR) Negative (NEGATIVE) 04/04/23 14:55 Plan (1) Exacerbation of asthma: Status: Acute Qualifiers: Asthma severity: moderate Plan: ADMIT, SUPPLEMENTAL OXYGEN, ROCEPHIN 1G IV DAILY, SOLU-MEDROL 40MG IV Q8H, ALBUTEROL NEBS Q4H, PULMICORT NEBS BID, TUSSIONEX 5ML Q12H PRN, ROBITUSSIN DM 10ML Q4H PRN, NYSTATIN SUSP 5ML QID, AND FLUCONAZOLE 100MG DAILY. AIT SWAB BID PPI THERAPY, ABG ON ROOM AIR, EKG AND CT CHEST WITH CONTRAST DUE TO CHRONIC COUGH AND SOB (2) Acute bronchitis: Status: Acute Qualifiers: Bronchitis organism: unspecified organism Qualified Code(s): J20.9 - Acute bronchitis, unspecified (3) Fever: Status: Acute Qualifiers: Fever type: unspecified Qualified Code(s): R50.9 - Fever, unspecified
[2023-04-07] MEDS: SINGULAIR TAB 10 MG PO SCH (20:29)
--- NOTE | 2023-04-07 21:08 | US ---
EXAM:THYROIDHISTORY:ASTHMA, EXACERBATION;COMPARISON:None.TECHNIQUE:G rayscale, color-flow images of the thyroidFINDINGS:The right thyroid lobe measures 5.5 x 1.6 by 1.6 cm. There is a small nodule in the right thyroid lobe which is nearly isoechoic to the surrounding parenchyma with a subtle halo which measures roughly 5 x 8 mm in diameter and has a benign appearance. The thyroid isthmus is 4 mm in thickness. The left thyroid lobe measures 4.6 x 1.6 by 1.8 cm. There is a tiny cyst in the upper pole measuring up to 2 x 7 mm size.IMPRESSION:No worrisome thyroid abnormality.THIS IS AN ELECTRONICALLY VERIFIED FINAL [id number]/07/2023 8:56 PM - Electronically signed by Carlyle Meeks MD
[2023-04-08] MEDS: PROVENTIL NEB TX 0.083% 2.5MG/ 3ML NEB SCH ×3 (00:28→08:40)
[2023-04-08 05:25] LABS: ABG ALLEN TEST POS; ABG BASE EXCESS 5.5 mmol/L (-2.0-2.0); ABG HCO3 28.9 mmol/L (22-26)
[2023-04-08] MEDS: SOLU-Medrol 40 MG VIAL IVP SCH (05:40)
--- NOTE | 2023-04-08 05:58 | RAD ---
EXAM:CHEST, 1 VIEWHISTORY:SOB; HX: ASTHMACOMPARISON:Chest x-ray 04/07/2023FINDINGS:The heart is normal in size. The pulmonary vasculature is within normal limits. The lungs appear clear. No pneumothorax, pleural effusion, or focal consolidation. No acute osseous abnormality.IMPRESSION:No acute cardiopulmonary disease. If clinical concern persists, could consider higher level imaging.THIS IS AN ELECTRONICALLY VERIFIED FINAL [id number]/08/2023 5:55 AM - Electronically signed by Jason Vanessa DO
[2023-04-08 06:02] LABS: BASOPHILS % (AUTO) 0.2 % (0.2-1.0); EOSINOPHILS # (AUTO) 0.1 x10^3/uL (0.0-0.2); EOSINOPHILS % (AUTO) 0.7 % (0.9-2.9); HEMATOCRIT 43.6 % (36.0-47.0); HEMOGLOBIN 14.4 g/dL (12.0-16.0); LYMPHOCYTES # (AUTO) 2.2 X10^3/uL (1.3-2.9); LYMPHOCYTES % (AUTO) 10.9 % (21.0-51.0); MEAN CORPUSCULAR HEMOGLOBIN 31.3 pg (27.0-34.0); MEAN CORPUSCULAR HGB CONC 33.2 g/dL (33.0-35.0); MEAN CORPUSCULAR VOLUME 94.4 fL (80.0-100.0); MONOCYTES # (AUTO) 2.2 x10^3/uL (0.3-0.8); MONOCYTES % (AUTO) 10.8 % (0.0-13.0); NEUTROPHILS # (AUTO) 15.8 x10^3/uL (2.2-4.8); NEUTROPHILS % (AUTO) 77.4 % (42.0-75.0); PLATELET COUNT 372 X10^3/uL (150.0-450.0); RED BLOOD COUNT 4.61 X10^6/uL (3.5-5.4); RED CELL DISTRIBUTION WIDTH 14.5 % (11.6-16.5); WHITE BLOOD COUNT 20.5 X10^3/uL (3.6-10.0)
[2023-04-08 06:26] LABS: ALANINE AMINOTRANSFERASE 27 Units/L (12-78); ALBUMIN 2.9 g/dL (3.4-5.0); ALKALINE PHOSPHATASE 115 Units/L (46-116); ASPARTATE AMINO TRANSFERASE 10 Units/L (15-37); BLOOD UREA NITROGEN 18 mg/dL (7-18); CARBON DIOXIDE 28.7 mmol/L (21-32); CHLORIDE 104 mmol/L (98-107); COR CA(FOR HYPOALB) 8.9 mg/dL (8.5-10.1); COR NA(FOR HYPERGLY) 140 mmol/L (136-145); CREATININE 0.87 mg/dL (0.55-1.02); GLUCOSE 144 mg/dL (65-99); POTASSIUM 4.1 mmol/L (3.5-5.1); SODIUM 139 mmol/L (136-145); TOTAL PROTEIN 6.3 g/dL (6.4-8.2); eGFR NON BLACK RACES > 60 (>60)
[2023-04-08] MEDS: NYSTATIN SUSP MT SCH (08:23)
[2023-04-08] MEDS: CLARITIN PO SCH (08:23)
[2023-04-08] MEDS: PROTONIX INJ 40 MG VIAL IVP SCH (08:24)
[2023-04-08] MEDS: FLONASE NASAL SPRAY ENOSTRIL SCH (08:24)
[2023-04-08] MEDS: ROCEPHIN VIAL 1 GRAM 1 G in NS 100 ML IV 100 ML IV SCH (08:24)
[2023-04-08] MEDS: DIFLUCAN PO SCH (08:24)
[2023-04-08] MEDS: PULMICORT NEB TX 0.5 MG NEB SCH (08:40)
[2023-04-08 09:52] VITALS: O2SAT 95
[2023-04-08 10:13] VITALS: RESP 18
[2023-04-08 12:09] VITALS: BP 135/69; PULSE 99; TEMP 99.3
--- NOTE | 2023-04-08 18:36 | PCM.DCPLAN ---
DISCHARGE SUMMARY Admission Date Date of Admission: 04/06/23 Discharge Date Discharge Date: 04/08/23 Admission Diagnoses (1) Exacerbation of asthma: Status: Acute (2) Acute bronchitis: Status: Acute (3) Fever: Status: Acute Discharge Diagnoses Discharge Diagnosis: 1. Asthma exacerbation 2. Acute bronchitis secondary to Streptococcus pneumoniae 3. Fever 4. Leukocytosis secondary to intravenous steroid administration Discharge Medications Discharge Medications: Home Medication List albuterol sulfate 90 mcg/actuation aerosol inhaler 2 puff inhalation Q4H PRN 04/04/23 [History] budesonide-formoterol HFA 80 mcg-4.5 mcg/actuation aerosol inhaler 2 puff inhalation BID 04/04/23 [History] cefdinir 300 mg capsule 300 mg PO BID 04/04/23 [History] nystatin 100,000 unit/mL oral suspension 5 ml PO TID PRN 04/04/23 [History] amoxicillin 875 mg-potassium clavulanate 125 mg tablet 1 tab PO Q12H #14 tabs 04/08/23 [Rx] methylprednisolone 4 mg tablets in a dose pack (Medrol (Chris)) 4 mg PO ONCE #1 ea 04/08/23 [Rx] Prescriptions: amoxicillin-pot clavulanate [facility] methylprednisolone [Medrol (Chris)] [facility] Hospital Course Vital Signs: Vital Signs Temperature 99.3 F Pulse Rate [Left] 99 Respiratory Rate 18 Blood Pressure [Left Arm] 135/69 O2 Sat by Pulse Oximetry 95 Latest Lab Results: Laboratory Last Values WBC 20.5 X10^3/uL (3.6-10.0) H 04/08/23 05:43 RBC 4.61 X10^6/uL (3.5-5.4) 04/08/23 05:43 Hgb 14.4 g/dL (12.0-16.0) 04/08/23 05:43 Hct 43.6 % (36.0-47.0) 04/08/23 05:43 MCV 94.4 fL (80.0-100.0) 04/08/23 05:43 MCH 31.3 pg (27.0-34.0) 04/08/23 05:43 MCHC 33.2 g/dL (33.0-35.0) 04/08/23 05:43 RDW 14.5 % (11.6-16.5) 04/08/23 05:43 Plt Count 372 X10^3/uL (150.0-450.0) 04/08/23 05:43 Plt Count Comment Adequate (ADEQUATE) 04/06/23 05:51 MPV 7.0 fL (7.4-11.0) L 04/08/23 05:43 Neut % (Auto) 77.4 % (42.0-75.0) H 04/08/23 05:43 Lymph % (Auto) 10.9 % (21.0-51.0) L 04/08/23 05:43 [place] % (Auto) 10.8 % (0.0-13.0) 04/08/23 05:43 Eos % (Auto) 0.7 % (0.9-2.9) L 04/08/23 05:43 Baso % (Auto) 0.2 % (0.2-1.0) 04/08/23 05:43 Neut # (Auto) 15.8 x10^3/uL (2.2-4.8) H 04/08/23 05:43 Lymph # (Auto) 2.2 X10^3/uL (1.3-2.9) 04/08/23 05:43 [place] # (Auto) 2.2 x10^3/uL (0.3-0.8) H 04/08/23 05:43 Eos # (Auto) 0.1 x10^3/uL (0.0-0.2) 04/08/23 05:43 Baso # (Auto) 0.0 X10^3/uL (0.0-0.1) 04/08/23 05:43 Absolute Nucleated RBC 0.0 /100WBC 04/08/23 05:43 Total Counted 100 04/06/23 05:51 Neutrophils % (Manual) 80 % (39-76) H 04/06/23 05:51 Lymphocytes % (Manual) 13 % (13-43) 04/06/23 05:51 Monocytes % (Manual) 7 % (4-9) 04/06/23 05:51 Plt Morphology Comment Normal (NORMAL) 04/06/23 05:51 RBC Morphology Normal (NORMAL) 04/06/23 05:51 D-Dimer 0.31 ug/ml (0.0-0.57) 04/07/23 05:21 Sample Site Lr 04/08/23 05:00 ABG pH 7.500 (7.35-7.45) H 04/08/23 05:00 ABG pCO2 37.0 mmHg (35.0-45.0) 04/08/23 05:00 ABG pO2 73.0 mmHg (80.0-100.0) L 04/08/23 05:00 ABG HCO3 28.9 mmol/L (22-26) H 04/08/23 05:00 ABG O2 Saturation 96.0 % (90-100) 04/08/23 05:00 ABG Base Excess 5.5 mmol/L (-2.0-2.0) H 04/08/23 05:00 Kanu Test Pos 04/08/23 05:00 A-a Gradient 30.0 mmHg 04/08/23 05:00 FiO2 21.0 04/08/23 05:00 Blood Gas Comments Kierra well sw 04/08/23 05:00 Sodium 139 mmol/L (136-145) 04/08/23 05:43 Corrected Sodium 140 mmol/L (136-145) 04/08/23 05:43 Potassium 4.1 mmol/L (3.5-5.1) 04/08/23 05:43 Chloride 104 mmol/L (98-107) 04/08/23 05:43 Carbon Dioxide 28.7 mmol/L (21-32) 04/08/23 05:43 BUN 18 mg/dL (7-18) 04/08/23 05:43 Creatinine 0.87 mg/dL (0.55-1.02) 04/08/23 05:43 Est GFR (MDRD) Af Amer > 60 (>60) 04/08/23 05:43 Est GFR (MDRD) Non-Af > 60 (>60) 04/08/23 05:43 Glucose 144 mg/dL (65-99) H 04/08/23 05:43 POC Glucose (mg/dL) 125 mg/dL (65-99) H 04/06/23 17:23 Calcium 8.0 mg/dL (8.5-10.1) L 04/08/23 05:43 Corrected Calcium 8.9 mg/dL (8.5-10.1) 04/08/23 05:43 Total Bilirubin 0.30 mg/dL (0.2-1.0) 04/08/23 05:43 AST 10 Units/L (15-37) L 04/08/23 05:43 ALT 27 Units/L (12-78) 04/08/23 05:43 Alkaline Phosphatase 115 Units/L (46-116) 04/08/23 05:43 Total Protein 6.3 g/dL (6.4-8.2) L 04/08/23 05:43 Albumin 2.9 g/dL (3.4-5.0) L 04/08/23 05:43 Globulin 3.4 g/dL (2.5-4.5) 04/08/23 05:43 Albumin/Globulin Ratio 0.9 Ratio (1.1-2.1) L 04/08/23 05:43 Free T4 1.06 ng/dL (0.76-1.46) 04/06/23 05:51 TSH 3rd Generation 0.271 uIU/mL (0.358-3.74) L 04/04/23 15:38 SARS-CoV-2 (PCR) Negative (NEGATIVE) 04/04/23 14:55 Influenza Type A (PCR) Negative (NEGATIVE) 04/04/23 14:55 Influenza Type B (PCR) Negative (NEGATIVE) 04/04/23 14:55 RSV (PCR) Negative (NEGATIVE) 04/04/23 14:55 Resp Viral Panel (PCR) See scanned report 04/05/23 16:42 Hospital Course: IS A 32 YEAR OLD BLACK FEMALE. SHE IS A PATIENT OF [facility]. SHE HAS A PMH OF ASTHMA AND GERD. SHE PRESENTED TO THE ER WITH COMPLAINTS OF PERSISTENT COUGH, SHORTNESS OF BREATH, HEADACHE, AND CHEST DISCOMFORT. PATIENT REPORTS THAT SHE HAS HAD RECURRENT PULMONARY ISSUES FOR THE PAST SEVERAL WEEKS. SHE WAS RECENTLY DIAGNOSED WITH ASTHMA. SHE REPORTS THAT SHE WAS ALSO TOLD LAST WEEK THAT SHE HAD A SINUS INFECTION AND WAS PRESCRIBED CEFDINIR, WHICH SHE IS STILL TAKING. SHE REPORTS THAT SHORTNESS OF BREATH HAS WORSENED OVER THE PAST DAY OR TWO. SHE REPORTS THAT HER OXYGEN SATURATION AT HOME HAS DROPPED TO 90% AND THAT SHE HAS RAN A FEVER. SHE REPORTS THAT COUGH IS NOT PRODUCTIVE AND THAT SHE HAS HAD SOME SINUS CONGESTION. SHE DENIES BOWEL OR BLADDER ISSUES. IT APPEARS THAT PATIENT HAS TAKEN CEFDINIR 300MG BID, ALBUTEROL INHALER, BUDESONIDE INHALER, FLUCONAZOLE 100MG Q3DAYS, NYSTATIN SWISH AND SWALLOW SINCE 03/24/23. ON ARRIVAL TO THE HOSPTIAL, HER VITALS WERE: 100.5-144-28-92%ROOM AIR-132/87. LABS WERE OBTAINED. WBC 10.8, RBC 4.79, HGB 15.1, HCT 44.9, PLT COUNT 409, SODIUM 136, POTASSIUM 4.3, CHLORIDE 103, CARBON DIOXIDE 25.8, BUN 11, CREATININE 1.01, GLUCOSE 133, CALCIUM 8.7, TOTAL BILI 0.40, AST 37, ALT 41, ALK PHOS 118, TOTAL PROTEIN 7.5, ALBUMIN 3.5. COVID, INFLUENZA, AND RSV NEGATIVE. A CHEST XRAY WAS OBTAINED AND REVEALED: 1. No acute cardiopulmonary abnormality. IN THE ER, SHE WAS PLACED ON OXYGEN VIA NASAL CANNULA AT 2 LPM. SATURATIONS INCREASED TO THE UPPER 90s. IN THE ER, SHE WAS GIVEN DECADRON 8MG IV X 1, DUONEB X 2, NORMAL SALINE BOLUS, TORADOL 30MG IV X 1, NORCO 7.5/325MG X 1. SHE WAS ADMITTED TO THE HOSPITAL FOR FURTHER EVALUATION AND TREATMENT OF ASTHMA EXACERBATION, ACUTE BRONCHITIS. ON ADMISSION, SHE WAS STARTED ON ROCEPHIN 1G IV DAILY, SOLU-MEDROL 40MG IV Q8H, ALBUTEROL NEBS Q4H, PULMICORT NEBS BID, TUSSIONEX 5ML Q12H PRN, ROBITUSSIN DM 10ML Q4H PRN, NYSTATIN SUSP 5ML QID, AND FLUCONAZOLE 100MG DAILY. OTHERWISE, WE PLAN TO FOLLOW UP WITH AM LABS AND CHEST XRAY AND CONTINUE TO MONITOR. They continue her on the same treatment pulm following day and she was still wheezing some but was feeling a little better. By the following morning she was still coughing a lot but was moving more air when she was breathing. When I saw her this morning she was not wheezing and had good air entry bilaterally. Her white count was up to 20,500 but I think this was from the IV Solu-Medrol that she was getting. Her sputum culture showed that she grew out Streptococcus pneumoniae and it was sensitive to the Rocephin that she was receiving. She was ready to go home and given her lung exam to what she sounded I think she was stable enough to be discharged home and started on oral antibiotics and oral steroids. We went ahead and discharge her home on Augmentin 875 mg 1 p.o. twice daily x1 week and a Medrol Dosepak to be taken as directed and the patient was instructed to resume her regular medications as before. She does see a aeronautical engineer, Dr. Macias in [place], [place] for her treatment of asthma that she has been she will be following up with him within a week for hospital follow-up. She does have albuterol metered-dose inhaler at home she does take Symbicort inhaler at home at 2 puffs twice daily. The patient was discharged home in stable condition and she was told to call her primary care physician or aeronautical engineer if she should start having any trouble breathing or wheezing again and she cannot get a hold of them to go to the closest emergency department for further evaluation and treatment she understands this.
== END 2023-04-08 13:00 | disposition home or self-care (01) | DRG 203 ==
LOC: ER 14:25 → MED/SURG 14:25
PROVIDERS: ADMIT Internal Medicine; ATTEND Internal Medicine
DX: B95.3 Streptococcus pneumoniae as the cause of diseases classified elsewhere; J45.901 Unspecified asthma with (acute) exacerbation; R06.02 Shortness of breath; J20.8 Acute bronchitis due to other specified organisms; K21.9 Gastro-esophageal reflux disease without esophagitis; R50.9 Fever, unspecified; Z20.822 Contact with and (suspected) exposure to COVID-19